=== PATIENT | male | born 1950 | race American Indian/Alaskan Native ===

== ENCOUNTER 2018-12-05 20:20 | Emergency (ER) | payer MEDICARE, MEDICAID ==
[2018-12-05] MEDS: Nitroglycerin 0.4 MG Tab.SL SL ONE (20:28)
--- NOTE | 2018-12-05 21:12 | EDM.PDOC ---
ED HPI GENERAL MEDICAL PROBLEM - General Chief Complaint: Cardiovascular Problem Stated Complaint: UNK Time Seen by Provider: 12/05/18 20:30 Source of Information: Reports: Patient, EMS History Limitations: Reports: No Limitations - History of Present Illness INITIAL COMMENTS - FREE TEXT/NARRATIVE: ED with c/o chest for past 3 days. Prior AL last 10 years ago when had pacer put in. No nausea, vomiting or sweating associated with pain, Non smoker, No cough. Denies swelling. Unsure of Medications. Diabetic. Takes insulin. Blood sugar 200 today. Nitro x 1 at home without relief, admits it was probably pretty old. Aspirin enroute by EMS. 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 [Unable to Verify Home Med List] 12/06/18 [History] Past Medical History HEENT History: Reports: Impaired Vision Cardiovascular History: Reports: AL (10 years ago) Respiratory History: Reports: COPD Endocrine/Metabolic History: Reports: Diabetes, Type II - Past Surgical History Cardiovascular Surgical History: Reports: Coronary Artery Bypass, Pacer Social & Family History - Family History Family Medical History: Noncontributory - Tobacco Use Smoking Status *Q: Former Smoker Used Tobacco, but Quit: No Second Hand Smoke Exposure: No - Caffeine Use Caffeine Use: Reports: Coffee - Recreational Drug Use Recreational Drug Use: No ED ROS GENERAL - Review of Systems Review Of Systems: ROS reveals no pertinent complaints other than HPI. Constitutional: Denies: Fever, Chills, Malaise, Weakness, Night Sweats, Decreased Appetite HEENT: Reports: No Symptoms Respiratory: Reports: No Symptoms. Denies: Shortness of Breath, Cough Cardiovascular: Reports: Chest Pain. Denies: Edema, Lightheadedness, Orthopnea , Palpitations Endocrine: Denies: Fatigue GI/Abdominal: Reports: Abdominal Pain (epigastric burning). Denies: Black Stool , Diarrhea, Decreased Appetite Musculoskeletal: Reports: No Symptoms Skin: Reports: No Symptoms Neurological: Reports: No Symptoms ED EXAM, GENERAL - Physical Exam Exam: See Below Exam Limited By: No Limitations General Appearance: Alert, No Apparent Distress Eye Exam: Bilateral Eye: EOMI, PERRL Ears: Normal External Exam Nose: Normal Inspection Throat/Mouth: Normal Inspection Head: Atraumatic, Normocephalic Neck: Normal Inspection, Supple, Full Range of Motion Respiratory/Chest: No Respiratory Distress, Lungs Clear, Normal Breath Sounds GI/Abdominal: Normal Bowel Sounds, Soft, Tender (mild epigastric). No: No Distention, Distended, Guarding Back Exam: Normal Inspection, Full Range of Motion Extremities: Normal Inspection, Pedal Edema (1+) Neurological: Alert, Oriented, Other Psychiatric: Flat Affect Skin Exam: Warm, Dry, Intact, Normal Color, No Rash Course - Vital Signs Last Recorded V/S: Last Vital Signs Temp Pulse Resp BP 173/74 H 12/05/18 20:28 Pulse Ox - Orders/Labs/Meds Orders: Active Orders 24 hr Category Date Time Status EKG Documentation Completion [RC] URGENT Care 12/05/18 20:05 Active Chest 1V Frontal [CR] Urgent Exams 12/05/18 20:05 Taken Labs: Laboratory Tests 12/05/18 12/05/18 12/05/18 Range/Units 20:49 20:49 20:49 WBC 7.8 (5.0-10.0) 10^3/uL RBC 4.68 (4.6-6.2) 10^6/uL Hgb 12.6 L (14.0-18.0) g/dL Hct 37.7 L (40.0-54.0) % MCV 80.6 (80-100) fL MCH 26.9 L (27.0-34.0) pg MCHC 33.4 (33.0-35.0) g/dL Plt Count 280 (150-450) 10^3/uL Neut % (Auto) 42.6 (42.2-75.2) % Lymph % (Auto) 34.6 (20.5-50.1) % Collier % (Auto) 5.7 (2-8) % Eos % (Auto) 16.6 H (1.0-3.0) % Baso % (Auto) 0.5 (0.0-1.0) % PT 8.9 L (9.0-12.0) SEC INR 0.9 (0.9-1.2) Sodium 138 (135-145) mmol/L Potassium 3.7 (3.6-5.0) mmol/L Chloride 102 (101-111) mmol/L Carbon Dioxide 22.0 (21.0-31.0) mmol/L Anion Gap 17.7 BUN 19 H (7-18) mg/dL Creatinine 0.9 (0.6-1.3) mg/dL Est Cr Clr Drug Dosing TNP Estimated GFR (MDRD) > 60 BUN/Creatinine Ratio 21.11 Glucose 196 H (74-105) mg/dL Calcium 9.1 (8.4-10.2) mg/dl Total Bilirubin 0.6 (0.2-1.0) mg/dL AST 26 (10-42) IU/L ALT 16 (10-60) IU/L Alkaline Phosphatase 86 (42-121) IU/L Troponin I 0.01 (0.00-0.02) ng/ml B-Natriuretic Peptide 90 (0-100) pg/ml Total Protein 7.0 (6.7-8.2) g/dl Albumin 4.1 (3.2-5.5) g/dl Globulin 2.9 Albumin/Globulin Ratio 1.41 Amylase 51 (28-100) U/L Lipase 29 (22-51) U/L Ethyl Alcohol < 5 mg/dL 12/06/18 Range/Units 00:26 WBC (5.0-10.0) 10^3/uL RBC (4.6-6.2) 10^6/uL Hgb (14.0-18.0) g/dL Hct (40.0-54.0) % MCV (80-100) fL MCH (27.0-34.0) pg MCHC (33.0-35.0) g/dL Plt Count (150-450) 10^3/uL Neut % (Auto) (42.2-75.2) % Lymph % (Auto) (20.5-50.1) % Collier % (Auto) (2-8) % Eos % (Auto) (1.0-3.0) % Baso % (Auto) (0.0-1.0) % PT (9.0-12.0) SEC INR (0.9-1.2) Sodium (135-145) mmol/L Potassium (3.6-5.0) mmol/L Chloride (101-111) mmol/L Carbon Dioxide (21.0-31.0) mmol/L Anion Gap BUN (7-18) mg/dL Creatinine (0.6-1.3) mg/dL Est Cr Clr Drug Dosing Estimated GFR (MDRD) BUN/Creatinine Ratio Glucose (74-105) mg/dL Calcium (8.4-10.2) mg/dl Total Bilirubin (0.2-1.0) mg/dL AST (10-42) IU/L ALT (10-60) IU/L Alkaline Phosphatase (42-121) IU/L Troponin I < 0.02 (0.00-0.02) ng/ml B-Natriuretic Peptide (0-100) pg/ml Total Protein (6.7-8.2) g/dl Albumin (3.2-5.5) g/dl Globulin Albumin/Globulin Ratio Amylase (28-100) U/L Lipase (22-51) U/L Ethyl Alcohol mg/dL Meds: Medications Discontinued Medications Generic Name Dose Route Start Last Admin Trade Name Freq PRN Reason Stop Dose Admin Al Hydroxide/Mg Hydroxide 30 ml 12/05/18 21:35 12/05/18 21:41 Gi Cocktail PO 12/05/18 21:36 30 ml ONETIME ONE Administration Nitroglycerin Confirm 12/05/18 20:27 12/05/18 21:55 Nitrostat Administered 12/05/18 20:28 Not Given Dose 0.4 mg .ROUTE .STK-MED ONE Nitroglycerin 0.4 mg 12/05/18 20:46 12/05/18 20:28 Nitrostat SL 12/05/18 20:47 0.4 mg ONETIME ONE Administration - Radiology Interpretation Free Text/Narrative:: [facility] Final Radiology Report Call: [phone] assistance Online chat: [email or web address] Name: ERI REED Age: 67Years M Date: 12/05/2018 SSN: -- : [id number] Study: XR CHEST 1 VIEW FRONTAL Requesting Physician: LISSA FUNG Images: 1 Addl Studies: Provided Clinical History: Contrast: Contrast Medium: Contrast Amount: Contrast Method: CONFIDENTIALITY STATEMENT This report is intended only for use by the referring physician, and only in accordance with law. If you received this in error, call [phone]. Page 1 of 1 EXAM: XR Chest, 1 View EXAM DATE/TIME: 12/05/2018 8:45 PM CLINICAL HISTORY: 67 years old, male; Chest pain TECHNIQUE: Imaging protocol: XR of the chest, 1 view. COMPARISON: No relevant prior studies available. FINDINGS: Lungs: Unremarkable. No consolidation. Pleural space: Unremarkable. No evidence of pneumothorax. Heart/Mediastinum: Unremarkable. Heart size within normal limits for technique. Bones/joints: Unremarkable. IMPRESSION: No acute findings. - Re-Assessments/Exams Free Text/Narrative Re-Assessment/Exam: 12/06/18 01:35Pain relieved with GI cocktail. Has been resting. Repeat troponin negative. Departure - Departure Time of Disposition: 01:32 Disposition: Home, Self-Care 01 Condition: Good Clinical Impression: Chest pain Qualifiers: Chest pain type: unspecified Qualified Code(s): R07.9 - Chest pain, unspecified Instructions: Nonspecific Chest Pain Forms: ED Department Discharge Additional Instructions: Continue home medications follow up with primary care this week bland diet, no spice, caffeine or alcohol urgent follow up if sever chest pain, arm pain nause difficulty breathing - My Orders Last 24 Hours: My Active Orders 12/05/18 20:05 EKG Documentation Completion [RC] URGENT Chest 1V Frontal [CR] Urgent - Assessment/Plan Last 24 Hours: My Active Orders 12/05/18 20:05 EKG Documentation Completion [RC] URGENT Chest 1V Frontal [CR] Urgent
[2018-12-05 21:23] LABS: ANION GAP 17.7; CHLORIDE,CL 102 mmol/L (101-111); SODIUM,NA 138 mmol/L (135-145)
[2018-12-05] MEDS: GI Cocktail Oral Solution 30 ML PO ONE (21:41)
[2018-12-05] MEDS: Nitroglycerin 0.4 MG Tab.SL ONE (21:55)
== END 2018-12-06 01:45 | disposition home or self-care (01) ==
LOC: DL.ED 20:20
DX: R07.9 Chest pain, unspecified (principal); I25.2 Old myocardial infarction; J44.9 Chronic obstructive pulmonary disease, unspecified; E11.9 Type 2 diabetes mellitus without complications; Z87.891 Personal history of nicotine dependence
CPT/HCPCS: 36415; 71045; 80053; 82150; 83690; 83880; 84484; 85025; 85610; 93005; 99285; A9270; G0480